=== PATIENT | female | born 1930 | race Asian ===

== ENCOUNTER 2018-07-09 21:04 | Inpatient (IN) | payer MEDICARE, BC ==
[~2018-07-09] VITALS: Ht 142.2 cm; Wt 72.6 kg
[~2018-07-09 21:04] MED LIST: EVISTA60 MG BC; NORVASC5 MG PO
[2018-07-09] MEDS ORDERED: TRAMADOL HCL50 MG ORAL (21:07)
[2018-07-09] MEDS ORDERED: CLONIDINE HCL0.1 M1 PO (21:07)
--- NOTE | 2018-07-09 21:11 | Emergency Room Report ---
History of Present Illness General Chief Complaint: Chest Pain Source: Patient, EMS Present Illness HPI Is an 88-year-old female with a history of hypertension. She presents with chief complaint of chest pain and high blood pressure. She said her blood pressure at home was over 200 systolic. She took couple of her blood pressure medication. She then developed some chest pressure/chest pain tonight. She called 911. EMS gave her 1 spray of nitroglycerin and 2 baby aspirin. Her pain resolved. Blood pressure was running systolic 190 to 230s range. Patient denies any shortness of breath. Denies any diaphoresis. No exertional component. No fever chills but no nausea no vomiting. No diaphoresis. Allergies: Coded Allergies: No Known Allergies (Verified , 01/02/07) Patient History Past Medical History: see triage record, old chart reviewed, HTN Past Surgical History: pacemaker, other - back surgery Pertinent Family History: none Social History: Denies: smoking Last Menstrual Period: n/a Now: No Immunizations: other Reviewed Nursing Documentation: PMH: Agreed; PSxH: Agreed Nursing Documentation-PMH Past Medical History: No History, Except For Hx Cardiac Problems: Yes Hx Hypertension: Yes Hx Cancer: No Hx Gastrointestinal Problems: No Hx Neurological Problems: No Review of Systems Eye: Denies: eye pain, blurred vision ENT: Denies: ear pain, nose congestion, throat swelling Respiratory: Denies: cough, shortness of breath Cardiovascular: Reports: chest pain; Denies: palpitations Gastrointestinal: Denies: abdominal pain, diarrhea, nausea, vomiting Musculoskeletal: Denies: back pain, joint pain Skin: Denies: rash Neurological: Denies: headache, numbness Endocrine: Denies: increased thirst, increased urine Hematologic/Lymphatic: Denies: easy bruising All Other Systems: negative except mentioned in HPI Physical Exam Vital Signs Date Time Temp Pulse Resp B/P (MAP) Pulse Ox O2 Delivery O2 Flow Rate FiO2 07/09/18 20:58 98.2 103 18 221/120 100 Room Air 98.2 vitals with high blood pressure Sp02 EP Interpretation: reviewed, normal General Appearance: well appearing, no apparent distress, alert Head: normocephalic, atraumatic Eyes: bilateral eye PERRL, bilateral eye EOMI ENT: hearing grossly normal, normal pharynx Neck: full range of motion, supple, no meningismus Respiratory: chest non-tender, lungs clear, normal breath sounds Cardiovascular #1: regular rate, rhythm, no murmur Gastrointestinal: normal bowel sounds, non tender, no mass, no organomegaly, no bruit, non-distended Musculoskeletal: back normal, gait/station normal, normal range of motion Psychiatric: mood/affect normal Skin: warm/dry Medical Decision Making Diagnostic Impression: Primary Impression: Chest pain Qualified Codes: R07.9 - Chest pain, unspecified Additional Impression: Accelerated hypertension ER Course Patient with high blood pressure and chest pain. Blood pressure which improved here. She did get nitroglycerin and did take 2 extra doses of her blood pressure medication. No evidence of endorgan damage. No evidence of ACS, PE, dissection. Because of her age and medical history, will admit for further workup. I discussed the case with Dr. Delong who will admit for Dr. Reid. Lab Results Impression labs unremarkable EKG Diagnostic Results Rate: normal Rhythm: NSR, other - paced ST Segments: no acute changes ASA given to the pt in ED: No - given by EMS Rhythm Strip Diag. Results Rhythm Strip Time: 21:24 EP Interpretation: yes Rate: 60 Rhythm: NSR, no PVC's, no ectopy Chest X-Ray Diagnostic Results Chest X-Ray Diagnostic Results : Chest X-Ray Ordered: Yes # of Views/Limited/Complete: 1 View Indication: Chest Pain EP Interpretation: Yes Interpretation: no consolidation, no effusion, no pneumothorax, no acute cardiopulmonary disease, other - pacer Impression: No acute disease Electronically Signed by: Bennie Pack MD Last Vital Signs Date Time Temp Pulse Resp B/P (MAP) Pulse Ox O2 Delivery O2 Flow Rate FiO2 07/09/18 20:58 98.2 103 18 221/120 100 Room Air 98.2 Status: improved Disposition: ADMITTED INPATIENT Condition: Serious Bennie Pack MD Jul 09, 2018 21:11
[2018-07-09 21:44] LABS: APPEARANCE,URINE CLEAR; BILIRUBIN, URINE NEGATIVE (NEGATIVE); COLOR,URINE PALE YELLOW; GLUCOSE, URINE (UA) NEGATIVE (NEGATIVE); KETONES,URINE NEGATIVE (NEGATIVE); LEUKOCYTE ESTERASE ,URINE 1+ (NEGATIVE); NITRITE,URINE NEGATIVE (NEGATIVE); PH,URINE 6.5 (4.5-8.0); PROTEIN,URINE 1+ (NEGATIVE); UROBILINOGEN,URINE NORMAL MG/DL (0.0-1.0)
[2018-07-09 22:06] LABS: BASOPHILS % (AUTO) 2.3 % (0.0-2.0); EOSINOPHILS % (AUTO) 3.7 % (0.0-3.0); HEMOGLOBIN 14.2 G/DL (12.0-16.0); LYMPHOCYTES % (AUTO) 36.8 % (20.0-45.0); MEAN CORPUSCULAR VOLUME 92 FL (80-99); MONOCYTES % (AUTO) 7.9 % (1.0-10.0); NEUTROPHILS % (AUTO) 49.4 % (45.0-75.0); PLATELET COUNT 154 K/UL (150-450); RED BLOOD COUNT 4.55 M/UL (4.20-5.40); RED CELL DISTRIBUTION WIDTH 11.5 % (11.6-14.8); WHITE BLOOD COUNT 5.2 K/UL (4.8-10.8)
[2018-07-09 22:20] LABS: ANION GAP 8 mmol/L (5-15); BLOOD UREA NITROGEN 35 mg/dL (7-18); CALCIUM 9.2 MG/DL (8.5-10.1); CARBON DIOXIDE 27 MMOL/L (21-32); CHLORIDE 104 MMOL/L (98-107); CREATININE 1.4 MG/DL (0.55-1.30); POTASSIUM 3.8 MMOL/L (3.5-5.1); SODIUM 139 MMOL/L (136-145)
[2018-07-09 22:29] VITALS: BP 130/52
[2018-07-09 22:33] LABS: ALANINE AMINOTRANSFERASE 16 U/L (12-78); ALBUMIN 3.4 G/DL (3.4-5.0); ALBUMIN/GLOBULIN RATIO 0.8 (1.0-2.7); ALKALINE PHOSPHATASE 58 U/L (46-116); ASPARTATE AMINO TRANSFERASE 18 U/L (15-37); BILIRUBIN,TOTAL 0.3 MG/DL (0.2-1.0); CREATINE KINASE 115 U/L (26-308)
[2018-07-09 23:10] VITALS: BP 126/55
[2018-07-10] VITALS: BP 144/64
[2018-07-10] MEDS ORDERED: Acetaminophen 500mg (ES) tab ORAL PRN
[2018-07-10 04:00] VITALS: BP 114/61
[2018-07-10] MEDS ORDERED: Heparin 5000 units/ml inj IV SCH (05:00)
[2018-07-10] MEDS ORDERED: Heparin 25,000u/D5W 500ml 500 ML IV SCH ×3 (05:00→22:00)
[2018-07-10 06:46] LABS: EOSINOPHILS % (AUTO) 2.8 % (0.0-3.0); HEMOGLOBIN 12.2 G/DL (12.0-16.0); LYMPHOCYTES % (AUTO) 34.5 % (20.0-45.0); MEAN CORPUSCULAR VOLUME 92 FL (80-99); MONOCYTES % (AUTO) 9.4 % (1.0-10.0); NEUTROPHILS % (AUTO) 51.3 % (45.0-75.0); PLATELET COUNT 139 K/UL (150-450); RED BLOOD COUNT 3.93 M/UL (4.20-5.40); RED CELL DISTRIBUTION WIDTH 11.9 % (11.6-14.8); WHITE BLOOD COUNT 5.3 K/UL (4.8-10.8)
[2018-07-10 07:03] LABS: ANION GAP 7 mmol/L (5-15); BLOOD UREA NITROGEN 36 mg/dL (7-18); CALCIUM 8.8 MG/DL (8.5-10.1); CARBON DIOXIDE 27 MMOL/L (21-32); CHLORIDE 110 MMOL/L (98-107); CREATININE 1.2 MG/DL (0.55-1.30); POTASSIUM 4.3 MMOL/L (3.5-5.1); SODIUM 143 MMOL/L (136-145)
[2018-07-10 08:00] VITALS: BP 130/63
[2018-07-10] MEDS ORDERED: Heparin 5000 units/ml inj SUBQ SCH (09:00)
[2018-07-10] MEDS: Aspirin Baby 81mg NG SCH (09:12)
[2018-07-10] MEDS: cloNIDine 0.2mg Tab ORAL SCH ×2 (09:12→20:37)
--- NOTE | 2018-07-10 10:25 | History and Physical ---
History of Present Illness General Date patient seen: Jul 10, 2018 Time patient seen: 09:00 Reason for Hospitalization: Chest Pain Present Illness HPI 88 yo F PMH of HTN and pacemaker placement presents for SBP of 220 and chest pain. Patient states she occasionally notices her BP is as high as 200 and goes to the emergency room. Patient states she never missed a dose of her medication and takes clonidine 0.2 mg PO BID. In the ER patient was given nitroglycerin and two asa. Patient was experiencing chest pain on arrival however she now states that she has no chest pain. Patient also denies headache, nausea or visual changes. Patient lives at home and states she is able to preform all her ADL. All: none Meds: clonidine 0.2 mg po BID, it c, b12, fish oil PMH: HTN PSH: cesarian x 2, "back surgery", pacemaker FmHx: denies SocHx: patient denies etoh, smoking and drug use Allergies: Coded Allergies: No Known Allergies (Verified , 01/02/07) Medication History Scheduled Amlodipine Besylate (Norvasc), 5 MG PO DAILY, (Reported) Scheduled PRN Tramadol Hcl* (Ultram*), 50 MG ORAL Q6H PRN for For Pain, (Reported) Miscellaneous Medications Clonidine HCl (Clonidine HCl ER), 0.1 MG PO, (Reported) Discontinued Medications Raloxifene Hcl* (Evista*), 60 MG BC, (Reported) Discontinued Reason: Therapy completed Patient History Healthcare decision maker Resuscitation status Full Code Advanced Directive on File No Review of Systems All Other Systems: negative except mentioned in HPI Physical Exam General Appearance: WD/WN, no apparent distress, alert HEENT: normocephalic, atraumatic, anicteric, mucous membranes moist, PERRL Neck: non-tender, normal alignment, supple, normal inspection, abnormal alignment Respiratory/Chest: chest wall non-tender, lungs clear, normal breath sounds, no respiratory distress, no accessory muscle use Cardiovascular/Chest: normal peripheral pulses, normal rate, regular rhythm, regularly irregular, no gallop/murmur Abdomen: non tender, soft, no organomegaly, no mass Extremities: normal range of motion, non-tender, normal inspection, no calf tenderness, normal capillary refill 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, no motor/sensory deficits, oriented x 3 Last 24 Hour Vital Signs Date Time Temp Pulse Resp B/P (MAP) Pulse Ox O2 Delivery O2 Flow Rate FiO2 07/10/18 09:12 130/63 07/10/18 09:00 Room Air 07/10/18 08:00 97.3 60 18 130/63 (85) 98 97.3 07/10/18 04:00 61 07/10/18 04:00 97.9 60 20 114/61 (78) 95 97.9 07/10/18 00:19 Room Air 07/10/18 00:00 60 07/10/18 00:00 97.5 60 18 144/64 (90) 95 97.5 07/09/18 23:32 97.7 60 15 126/55 98 Room Air 07/09/18 23:10 97.5 60 15 126/55 98 Room Air 97.5 60 07/09/18 22:29 103 18 Room Air 07/09/18 22:29 97.5 60 18 130/52 97 Room Air 97.5 07/09/18 20:58 98.2 103 18 221/120 100 Room Air 98.2 Intake and Output 07/09/18 07/10/18 19:00 07:00 Intake Total 153.675 ml Balance 153.675 ml Intake Oral 120 ml IV Total 33.675 ml # Voids 4 Laboratory Tests Test 07/09/18 21:15 07/09/18 21:35 07/10/18 00:45 07/10/18 04:15 Urine Color Pale yellow Urine Appearance Clear Urine pH 6.5 (4.5-8.0) Urine Specific [place] 1.005 (1.005-1.035) Urine Protein 1+ (NEGATIVE) H Urine Glucose (UA) Negative (NEGATIVE) Urine Ketones Negative (NEGATIVE) Urine Blood 2+ (NEGATIVE) H Urine Nitrite Negative (NEGATIVE) Urine Bilirubin Negative (NEGATIVE) Urine Urobilinogen Normal MG/DL (0.0-1.0) Urine Leukocyte Esterase 1+ (NEGATIVE) H Urine RBC 0-2 /HPF (0 - 2) Urine WBC 0-2 /HPF (0 - 2) Urine Squamous Epithelial Cells None /LPF (NONE/OCC) Urine Bacteria None /HPF (NONE) White Blood Count 5.2 K/UL (4.8-10.8) Red Blood Count 4.55 M/UL (4.20-5.40) Hemoglobin 14.2 G/DL (12.0-16.0) Hematocrit 42.0 % (37.0-47.0) Mean Corpuscular Volume 92 FL (80-99) Mean Corpuscular Hemoglobin 31.1 PG (27.0-31.0) H Mean Corpuscular Hemoglobin Concent 33.8 G/DL (32.0-36.0) Red Cell Distribution Width 11.5 % (11.6-14.8) L Platelet Count 154 K/UL (150-450) Mean Platelet Volume 8.4 FL (6.5-10.1) Neutrophils (%) (Auto) 49.4 % (45.0-75.0) Lymphocytes (%) (Auto) 36.8 % (20.0-45.0) Monocytes (%) (Auto) 7.9 % (1.0-10.0) Eosinophils (%) (Auto) 3.7 % (0.0-3.0) H Basophils (%) (Auto) 2.3 % (0.0-2.0) H Sodium Level 139 MMOL/L (136-145) Potassium Level 3.8 MMOL/L (3.5-5.1) Chloride Level 104 MMOL/L (98-107) Carbon Dioxide Level 27 MMOL/L (21-32) Anion Gap 8 mmol/L (5-15) Blood Urea Nitrogen 35 mg/dL (7-18) H Creatinine 1.4 MG/DL (0.55-1.30) H Estimat Glomerular Filtration Rate mL/min (>60) Glucose Level 175 MG/DL (74-106) H Calcium Level 9.2 MG/DL (8.5-10.1) Total Bilirubin 0.3 MG/DL (0.2-1.0) Aspartate Amino Transf (AST/SGOT) 18 U/L (15-37) Alanine Aminotransferase (ALT/SGPT) 16 U/L (12-78) Alkaline Phosphatase 58 U/L (46-116) Total Creatine Kinase 115 U/L (26-308) Creatine Kinase MB 2.0 NG/ML (0.0-3.6) Creatine Kinase MB Relative Index 1.7 Troponin I 0.051 ng/mL (0.000-0.056) 0.525 ng/mL (0.000-0.056) Total Protein 7.6 G/DL (6.4-8.2) Albumin 3.4 G/DL (3.4-5.0) Globulin 4.2 g/dL Albumin/Globulin Ratio 0.8 (1.0-2.7) L Activated Partial Thromboplast Time 28 SEC (23-33) Test 07/10/18 06:05 White Blood Count 5.3 K/UL (4.8-10.8) Red Blood Count 3.93 M/UL (4.20-5.40) L Hemoglobin 12.2 G/DL (12.0-16.0) Hematocrit 36.0 % (37.0-47.0) L Mean Corpuscular Volume 92 FL (80-99) Mean Corpuscular Hemoglobin 30.9 PG (27.0-31.0) Mean Corpuscular Hemoglobin Concent 33.8 G/DL (32.0-36.0) Red Cell Distribution Width 11.9 % (11.6-14.8) Platelet Count 139 K/UL (150-450) L Mean Platelet Volume 7.6 FL (6.5-10.1) Neutrophils (%) (Auto) 51.3 % (45.0-75.0) Lymphocytes (%) (Auto) 34.5 % (20.0-45.0) Monocytes (%) (Auto) 9.4 % (1.0-10.0) Eosinophils (%) (Auto) 2.8 % (0.0-3.0) Basophils (%) (Auto) 2.0 % (0.0-2.0) Sodium Level 143 MMOL/L (136-145) Potassium Level 4.3 MMOL/L (3.5-5.1) Chloride Level 110 MMOL/L (98-107) H Carbon Dioxide Level 27 MMOL/L (21-32) Anion Gap 7 mmol/L (5-15) Blood Urea Nitrogen 36 mg/dL (7-18) H Creatinine 1.2 MG/DL (0.55-1.30) Estimat Glomerular Filtration Rate mL/min (>60) Glucose Level 105 MG/DL (74-106) Calcium Level 8.8 MG/DL (8.5-10.1) Troponin I 0.575 ng/mL (0.000-0.056) Height (Feet): 4 Height (Inches): 8.00 Weight (Pounds): 160 Medications Current Medications Medications (Trade) Dose Ordered Sig/Pedro Route PRN Reason Start Time Stop Time Status Last Admin Dose Admin Acetaminophen (Tylenol) 500 mg Q6HR PRN ORAL Mild Pain/Temp > 100.5 07/10/18 00:00 08/09/18 00:00 Aspirin (ASA) 81 mg DAILY NG 07/10/18 09:00 08/09/18 08:59 07/10/18 09:12 Atorvastatin Calcium (Lipitor) 80 mg BEDTIME ORAL 07/10/18 21:00 08/09/18 20:59 Clonidine HCl (Catapres tab) 0.2 mg Q12HR ORAL 07/10/18 09:00 08/09/18 08:59 07/10/18 09:12 Heparin Sodium/ Dextrose 500 ml @ 17.418 mls/ hr ADJUST PER PROTOCOL IV 07/10/18 05:00 08/09/18 04:59 07/10/18 05:04 Assessment/Plan Problem List: (1) Hypertensive emergency ICD Codes: I16.1 - Hypertensive emergency SNOMED: 137071454267616 (2) NSTEMI (non-ST elevated myocardial infarction) ICD Codes: I21.4 - Non-ST elevation (NSTEMI) myocardial infarction SNOMED: 743029220 (3) JOLANTA (acute kidney injury) ICD Codes: N17.9 - Acute kidney failure, unspecified SNOMED: 15630229 Assessment/Plan HTN Emergency, patient displays kidney dysfxn and elevated troponins with c/p- resolved - decreased BP by 15-20% in the first 24hours - would recommend CCB or BBB for patient as outpatient management NSTEMI - acs protocol (hold BB for BP was dropped too quickly) - serial troponins and EKG's - hep gtt - cards consult JOLANTA- resolved , 2/2 HTN - monitor Savanah Stauffer DO Jul 10, 2018 10:25
--- NOTE | 2018-07-10 11:46 | Diagnostic Imaging Report ---
Indication: Chest pain Comparison: 08/08/2012 A single view chest radiograph was obtained. Findings: There is a pacemaker on the left. Bones are osteopenic. Heart is borderline enlarged. Lungs are essentially clear. Partial visualization of the mid lumbar hardware noted. IMPRESSION: No acute disease
[2018-07-10 12:00] VITALS: BP 142/69
--- NOTE | 2018-07-10 13:32 | Consultation ---
History of Present Illness General Date patient seen: Jul 10, 2018 Time patient seen: 13:28 Chief Complaint: Chest Pain Present Illness HPI 88 year old female presents with HTN urgency, chest pain, elevated troponin. Hx of Pacemaker. BP initially was 220. She is compliant with medications, clonidine. She was given aspirin and nitro in ER. heparin gtt started. Troponin is now downtrending and currently no CP. Blood pressure is now normal. Chest x ray clear. Allergies: Coded Allergies: No Known Allergies (Verified , 01/02/07) Medication History Scheduled Amlodipine Besylate (Norvasc), 5 MG PO DAILY, (Reported) Scheduled PRN Tramadol Hcl* (Ultram*), 50 MG ORAL Q6H PRN for For Pain, (Reported) Miscellaneous Medications Clonidine HCl (Clonidine HCl ER), 0.1 MG PO, (Reported) Discontinued Medications Raloxifene Hcl* (Evista*), 60 MG BC, (Reported) Discontinued Reason: Therapy completed Patient History Healthcare decision maker Resuscitation status Full Code Advanced Directive on File No Review of Systems Constitutional: Reports: no symptoms Eye: Reports: no symptoms ENT: Reports: no symptoms Respiratory: Reports: no symptoms Cardiovascular: Reports: chest pain Gastrointestinal: Reports: no symptoms Genitourinary: Reports: no symptoms Musculoskeletal: Reports: no symptoms Skin: Reports: no symptoms Psychiatric: Reports: no symptoms Neurological: Reports: no symptoms Endocrine: Reports: no symptoms Hematologic/Lymphatic: Reports: no symptoms Physical Exam General Appearance: no apparent distress, alert Lines, tubes and drains: peripheral HEENT: normocephalic, atraumatic Neck: non-tender, normal alignment Respiratory/Chest: chest wall non-tender, lungs clear Abdomen: normal bowel sounds, non tender, soft, no organomegaly, no mass Extremities: normal range of motion, non-tender, normal inspection Skin Exam: normal pigmentation 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, no motor/sensory deficits, alert, oriented x 3 Last 24 Hour Vital Signs Date Time Temp Pulse Resp B/P (MAP) Pulse Ox O2 Delivery O2 Flow Rate FiO2 07/10/18 09:12 130/63 07/10/18 09:00 Room Air 07/10/18 08:00 97.3 60 18 130/63 (85) 98 97.3 07/10/18 04:00 61 07/10/18 04:00 97.9 60 20 114/61 (78) 95 97.9 07/10/18 00:19 Room Air 07/10/18 00:00 60 07/10/18 00:00 97.5 60 18 144/64 (90) 95 97.5 07/09/18 23:32 97.7 60 15 126/55 98 Room Air 07/09/18 23:10 97.5 60 15 126/55 98 Room Air 97.5 60 07/09/18 22:29 103 18 Room Air 07/09/18 22:29 97.5 60 18 130/52 97 Room Air 97.5 07/09/18 20:58 98.2 103 18 221/120 100 Room Air 98.2 Intake and Output 07/09/18 07/10/18 19:00 07:00 Intake Total 153.675 ml Balance 153.675 ml Intake Oral 120 ml IV Total 33.675 ml # Voids 4 Laboratory Tests Test 07/09/18 21:15 07/09/18 21:35 07/10/18 00:45 07/10/18 04:15 Urine Color Pale yellow Urine Appearance Clear Urine pH 6.5 (4.5-8.0) Urine Specific [place] 1.005 (1.005-1.035) Urine Protein 1+ (NEGATIVE) H Urine Glucose (UA) Negative (NEGATIVE) Urine Ketones Negative (NEGATIVE) Urine Blood 2+ (NEGATIVE) H Urine Nitrite Negative (NEGATIVE) Urine Bilirubin Negative (NEGATIVE) Urine Urobilinogen Normal MG/DL (0.0-1.0) Urine Leukocyte Esterase 1+ (NEGATIVE) H Urine RBC 0-2 /HPF (0 - 2) Urine WBC 0-2 /HPF (0 - 2) Urine Squamous Epithelial Cells None /LPF (NONE/OCC) Urine Bacteria None /HPF (NONE) White Blood Count 5.2 K/UL (4.8-10.8) Red Blood Count 4.55 M/UL (4.20-5.40) Hemoglobin 14.2 G/DL (12.0-16.0) Hematocrit 42.0 % (37.0-47.0) Mean Corpuscular Volume 92 FL (80-99) Mean Corpuscular Hemoglobin 31.1 PG (27.0-31.0) H Mean Corpuscular Hemoglobin Concent 33.8 G/DL (32.0-36.0) Red Cell Distribution Width 11.5 % (11.6-14.8) L Platelet Count 154 K/UL (150-450) Mean Platelet Volume 8.4 FL (6.5-10.1) Neutrophils (%) (Auto) 49.4 % (45.0-75.0) Lymphocytes (%) (Auto) 36.8 % (20.0-45.0) Monocytes (%) (Auto) 7.9 % (1.0-10.0) Eosinophils (%) (Auto) 3.7 % (0.0-3.0) H Basophils (%) (Auto) 2.3 % (0.0-2.0) H Sodium Level 139 MMOL/L (136-145) Potassium Level 3.8 MMOL/L (3.5-5.1) Chloride Level 104 MMOL/L (98-107) Carbon Dioxide Level 27 MMOL/L (21-32) Anion Gap 8 mmol/L (5-15) Blood Urea Nitrogen 35 mg/dL (7-18) H Creatinine 1.4 MG/DL (0.55-1.30) H Estimat Glomerular Filtration Rate mL/min (>60) Glucose Level 175 MG/DL (74-106) H Calcium Level 9.2 MG/DL (8.5-10.1) Total Bilirubin 0.3 MG/DL (0.2-1.0) Aspartate Amino Transf (AST/SGOT) 18 U/L (15-37) Alanine Aminotransferase (ALT/SGPT) 16 U/L (12-78) Alkaline Phosphatase 58 U/L (46-116) Total Creatine Kinase 115 U/L (26-308) Creatine Kinase MB 2.0 NG/ML (0.0-3.6) Creatine Kinase MB Relative Index 1.7 Troponin I 0.051 ng/mL (0.000-0.056) 0.525 ng/mL (0.000-0.056) Total Protein 7.6 G/DL (6.4-8.2) Albumin 3.4 G/DL (3.4-5.0) Globulin 4.2 g/dL Albumin/Globulin Ratio 0.8 (1.0-2.7) L Activated Partial Thromboplast Time 28 SEC (23-33) Test 07/10/18 06:05 07/10/18 11:40 White Blood Count 5.3 K/UL (4.8-10.8) Red Blood Count 3.93 M/UL (4.20-5.40) L Hemoglobin 12.2 G/DL (12.0-16.0) Hematocrit 36.0 % (37.0-47.0) L Mean Corpuscular Volume 92 FL (80-99) Mean Corpuscular Hemoglobin 30.9 PG (27.0-31.0) Mean Corpuscular Hemoglobin Concent 33.8 G/DL (32.0-36.0) Red Cell Distribution Width 11.9 % (11.6-14.8) Platelet Count 139 K/UL (150-450) L Mean Platelet Volume 7.6 FL (6.5-10.1) Neutrophils (%) (Auto) 51.3 % (45.0-75.0) Lymphocytes (%) (Auto) 34.5 % (20.0-45.0) Monocytes (%) (Auto) 9.4 % (1.0-10.0) Eosinophils (%) (Auto) 2.8 % (0.0-3.0) Basophils (%) (Auto) 2.0 % (0.0-2.0) Sodium Level 143 MMOL/L (136-145) Potassium Level 4.3 MMOL/L (3.5-5.1) Chloride Level 110 MMOL/L (98-107) H Carbon Dioxide Level 27 MMOL/L (21-32) Anion Gap 7 mmol/L (5-15) Blood Urea Nitrogen 36 mg/dL (7-18) H Creatinine 1.2 MG/DL (0.55-1.30) Estimat Glomerular Filtration Rate mL/min (>60) Glucose Level 105 MG/DL (74-106) Calcium Level 8.8 MG/DL (8.5-10.1) Troponin I 0.575 ng/mL (0.000-0.056) 0.350 ng/mL (0.000-0.056) Activated Partial Thromboplast Time > 150 SEC (23-33) *H Height (Feet): 4 Height (Inches): 8.00 Weight (Pounds): 160 Medications Current Medications Medications (Trade) Dose Ordered Sig/Pedro Route PRN Reason Start Time Stop Time Status Last Admin Dose Admin Acetaminophen (Tylenol) 500 mg Q6HR PRN ORAL Mild Pain/Temp > 100.5 07/10/18 00:00 08/09/18 00:00 Aspirin (ASA) 81 mg DAILY NG 07/10/18 09:00 08/09/18 08:59 07/10/18 09:12 Atorvastatin Calcium (Lipitor) 80 mg BEDTIME ORAL 07/10/18 21:00 08/09/18 20:59 Clonidine HCl (Catapres tab) 0.2 mg Q12HR ORAL 07/10/18 09:00 08/09/18 08:59 07/10/18 09:12 Heparin Sodium/ Dextrose 500 ml @ 11.612 mls/ hr ADJUST PER PROTOCOL IV 07/10/18 13:45 08/09/18 13:44 Rg Chun MD Jul 10, 2018 13:32
[2018-07-10 16:00] VITALS: BP 142/65
[2018-07-10 20:00] VITALS: BP 157/67
[2018-07-10] MEDS ORDERED: Atorvastatin 80mg tab ORAL SCH (21:00)
[2018-07-11] VITALS: BP 127/55
[2018-07-11 04:00] VITALS: BP 125/61
[2018-07-11 04:26] LABS: BASOPHILS % (AUTO) 1.6 % (0.0-2.0); HEMATOCRIT 36.6 % (37.0-47.0); HEMOGLOBIN 12.1 G/DL (12.0-16.0); LYMPHOCYTES % (AUTO) 43.8 % (20.0-45.0); MEAN CORPUSCULAR VOLUME 91 FL (80-99); MONOCYTES % (AUTO) 9.5 % (1.0-10.0); PLATELET COUNT 134 K/UL (150-450); RED BLOOD COUNT 4.02 M/UL (4.20-5.40); RED CELL DISTRIBUTION WIDTH 11.8 % (11.6-14.8); WHITE BLOOD COUNT 5.5 K/UL (4.8-10.8)
[2018-07-11 04:40] LABS: ANION GAP 5 mmol/L (5-15); BLOOD UREA NITROGEN 33 mg/dL (7-18); CALCIUM 8.5 MG/DL (8.5-10.1); CARBON DIOXIDE 27 MMOL/L (21-32); CHLORIDE 111 MMOL/L (98-107); CREATININE 1.5 MG/DL (0.55-1.30); POTASSIUM 3.9 MMOL/L (3.5-5.1); SODIUM 143 MMOL/L (136-145)
[2018-07-11] MEDS ORDERED: Heparin 25,000u/D5W 500ml 500 ML IV SCH (04:45)
[2018-07-11] MEDS ORDERED: Heparin 5000 units/ml inj IV ONE (05:00)
--- NOTE | 2018-07-11 07:37 | Consultation ---
Consult Note Consult Note Hematology/Oncology Consultation CELIA GRYA: Eh Reid DOS: 07/11/18 RFC: Thrombocytopenia and anticoagulation management HPI 88 yo F PMH of HTN and pacemaker placement presents for SBP of 220 and chest pain. Patient states she occasionally notices her BP is as high as 200 and goes to the emergency room. Patient states she never missed a dose of her medication and takes clonidine 0.2 mg PO BID. In the ER patient was given nitroglycerin and two asa. Patient was experiencing chest pain on arrival however she now states that she has no chest pain. Patient also denies headache, nausea or visual changes. Patient lives at home and states she is able to preform all her ADL. Is currently on a heparin gtt and seen by cards All: none Meds: clonidine 0.2 mg po BID, it c, b12, fish oil PMH: HTN PSH: cesarian x 2, "back surgery", pacemaker FmHx: denies SocHx: patient denies etoh, smoking and drug use Allergies: Coded Allergies: No Known Allergies (Verified , 01/02/07) Medication History Scheduled Amlodipine Besylate (Norvasc), 5 MG PO DAILY, (Reported) Scheduled PRN Tramadol Hcl* (Ultram*), 50 MG ORAL Q6H PRN for For Pain, (Reported) Miscellaneous Medications Clonidine HCl (Clonidine HCl ER), 0.1 MG PO, (Reported) Discontinued Medications Raloxifene Hcl* (Evista*), 60 MG BC, (Reported) Discontinued Reason: Therapy completed Patient History Healthcare decision maker Resuscitation status Full Code Advanced Directive on File No Review of Systems All Other Systems: negative except mentioned in HPI Physical Exam Last 24 Hour Vital Signs Date Time Temp Pulse Resp B/P (MAP) Pulse Ox O2 Delivery O2 Flow Rate FiO2 07/11/18 04:00 97.6 60 18 125/61 (82) 96 97.6 07/11/18 04:00 60 07/11/18 00:00 98.5 60 18 127/55 (79) 95 98.5 07/11/18 00:00 60 07/10/18 21:00 Room Air 07/10/18 20:37 157/67 07/10/18 20:00 60 07/10/18 20:00 98.4 61 19 157/67 (97) 96 98.4 07/10/18 16:00 60 07/10/18 16:00 98.6 60 18 142/65 (90) 98 98.6 07/10/18 12:00 60 07/10/18 12:00 98.3 60 18 142/69 (93) 98 98.3 07/10/18 09:12 130/63 07/10/18 09:00 Room Air 07/10/18 08:00 97.3 60 18 130/63 (85) 98 97.3 07/10/18 08:00 62 General Appearance: WD/WN, no apparent distress HEENT: normocephalic, atraumatic Neck: non-tender, normal alignment, supple Respiratory/Chest: chest wall non-tender Cardiovascular/Chest: normal peripheral pulses Abdomen: non tender, soft, no organomegaly, no mass Extremities: normal range of motion, non-tender 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, no motor/sensory deficits Laboratory Tests Test 07/09/18 21:15 07/09/18 21:35 07/10/18 00:45 07/10/18 04:15 Urine Color Pale yellow Urine Appearance Clear Urine pH 6.5 (4.5-8.0) Urine Specific [place] 1.005 (1.005-1.035) Urine Protein 1+ (NEGATIVE) H Urine Glucose (UA) Negative (NEGATIVE) Urine Ketones Negative (NEGATIVE) Urine Blood 2+ (NEGATIVE) H Urine Nitrite Negative (NEGATIVE) Urine Bilirubin Negative (NEGATIVE) Urine Urobilinogen Normal MG/DL (0.0-1.0) Urine Leukocyte Esterase 1+ (NEGATIVE) H Urine RBC 0-2 /HPF (0 - 2) Urine WBC 0-2 /HPF (0 - 2) Urine Squamous Epithelial Cells None /LPF (NONE/OCC) Urine Bacteria None /HPF (NONE) White Blood Count 5.2 K/UL (4.8-10.8) Red Blood Count 4.55 M/UL (4.20-5.40) Hemoglobin 14.2 G/DL (12.0-16.0) Hematocrit 42.0 % (37.0-47.0) Mean Corpuscular Volume 92 FL (80-99) Mean Corpuscular Hemoglobin 31.1 PG (27.0-31.0) H Mean Corpuscular Hemoglobin Concent 33.8 G/DL (32.0-36.0) Red Cell Distribution Width 11.5 % (11.6-14.8) L Platelet Count 154 K/UL (150-450) Mean Platelet Volume 8.4 FL (6.5-10.1) Neutrophils (%) (Auto) 49.4 % (45.0-75.0) Lymphocytes (%) (Auto) 36.8 % (20.0-45.0) Monocytes (%) (Auto) 7.9 % (1.0-10.0) Eosinophils (%) (Auto) 3.7 % (0.0-3.0) H Basophils (%) (Auto) 2.3 % (0.0-2.0) H Sodium Level 139 MMOL/L (136-145) Potassium Level 3.8 MMOL/L (3.5-5.1) Chloride Level 104 MMOL/L (98-107) Carbon Dioxide Level 27 MMOL/L (21-32) Anion Gap 8 mmol/L (5-15) Blood Urea Nitrogen 35 mg/dL (7-18) H Creatinine 1.4 MG/DL (0.55-1.30) H Estimat Glomerular Filtration Rate mL/min (>60) Glucose Level 175 MG/DL (74-106) H Calcium Level 9.2 MG/DL (8.5-10.1) Total Bilirubin 0.3 MG/DL (0.2-1.0) Aspartate Amino Transf (AST/SGOT) 18 U/L (15-37) Alanine Aminotransferase (ALT/SGPT) 16 U/L (12-78) Alkaline Phosphatase 58 U/L (46-116) Total Creatine Kinase 115 U/L (26-308) Creatine Kinase MB 2.0 NG/ML (0.0-3.6) Creatine Kinase MB Relative Index 1.7 Troponin I 0.051 ng/mL (0.000-0.056) 0.525 ng/mL (0.000-0.056) Total Protein 7.6 G/DL (6.4-8.2) Albumin 3.4 G/DL (3.4-5.0) Globulin 4.2 g/dL Albumin/Globulin Ratio 0.8 (1.0-2.7) L Activated Partial Thromboplast Time 28 SEC (23-33) Test 07/10/18 06:05 White Blood Count 5.3 K/UL (4.8-10.8) Red Blood Count 3.93 M/UL (4.20-5.40) L Hemoglobin 12.2 G/DL (12.0-16.0) Hematocrit 36.0 % (37.0-47.0) L Mean Corpuscular Volume 92 FL (80-99) Mean Corpuscular Hemoglobin 30.9 PG (27.0-31.0) Mean Corpuscular Hemoglobin Concent 33.8 G/DL (32.0-36.0) Red Cell Distribution Width 11.9 % (11.6-14.8) Platelet Count 139 K/UL (150-450) L Mean Platelet Volume 7.6 FL (6.5-10.1) Neutrophils (%) (Auto) 51.3 % (45.0-75.0) Lymphocytes (%) (Auto) 34.5 % (20.0-45.0) Monocytes (%) (Auto) 9.4 % (1.0-10.0) Eosinophils (%) (Auto) 2.8 % (0.0-3.0) Basophils (%) (Auto) 2.0 % (0.0-2.0) Sodium Level 143 MMOL/L (136-145) Potassium Level 4.3 MMOL/L (3.5-5.1) Chloride Level 110 MMOL/L (98-107) H Carbon Dioxide Level 27 MMOL/L (21-32) Anion Gap 7 mmol/L (5-15) Blood Urea Nitrogen 36 mg/dL (7-18) H Creatinine 1.2 MG/DL (0.55-1.30) Estimat Glomerular Filtration Rate mL/min (>60) Glucose Level 105 MG/DL (74-106) Calcium Level 8.8 MG/DL (8.5-10.1) Troponin I 0.575 ng/mL (0.000-0.056) Height (Feet): 4 Height (Inches): 8.00 Weight (Pounds): 160 Medications Current Medications Medications (Trade) Dose Ordered Sig/Pedro Route PRN Reason Start Time Stop Time Status Last Admin Dose Admin Acetaminophen (Tylenol) 500 mg Q6HR PRN ORAL Mild Pain/Temp > 100.5 07/10/18 00:00 08/09/18 00:00 Aspirin (ASA) 81 mg DAILY NG 07/10/18 09:00 08/09/18 08:59 07/10/18 09:12 Atorvastatin Calcium (Lipitor) 80 mg BEDTIME ORAL 07/10/18 21:00 08/09/18 20:59 Clonidine HCl (Catapres tab) 0.2 mg Q12HR ORAL 07/10/18 09:00 08/09/18 08:59 07/10/18 09:12 Heparin Sodium/ Dextrose 500 ml @ 17.418 mls/ hr ADJUST PER PROTOCOL IV 07/10/18 05:00 08/09/18 04:59 07/10/18 05:04 Assessment/Plan # Thrombocytopenia -- plt 100-150k in the setting of being on heparin gtt. At this time, is unlikely HIT as has not had a significant drop in platelet count yet. --> does not yet require a HIT test unless plt count >75k --> continue heparin gtt at this time --> hep and hiv have been ordered --> other meds reviewed # Coagulopathy with elev pt/ptt/inr secondary to heparin gtt --> continue gtt unless severe bleeding # NSTEMI (non-ST elevated myocardial infarction) - acs protocol (hold BB for BP was dropped too quickly) - serial troponins and EKG's - hep gtt - cards consult # JOLANTA- resolved , 2/2 HTN Greatly appreciate consultation! Kiel Garcia MD Jul 11, 2018 07:37
[2018-07-11 08:00] VITALS: BP 131/60
[2018-07-11] MEDS: Aspirin Baby 81mg NG SCH (08:44)
[2018-07-11 08:47] VITALS: BP 131/61
[2018-07-11] MEDS ORDERED: Hyzaar 12.5mg/50mg tab ORAL SCH (09:00)
[2018-07-11] MEDS ORDERED: ATORVASTATIN CA40 MG ORAL (09:57)
[2018-07-11] MEDS ORDERED: HYZAAR 50-12.51 EACH ORAL (09:57)
[2018-07-11] MEDS ORDERED: ASPIRIN81 MG NG (09:57)
--- NOTE | 2018-07-11 10:00 | Discharge Instructions ---
Discharge Instructions Discharge Instructions Follow up with: Cardiology, Dr. Chun for cardiac stress test Special Instructions You have been started on ASA and Lipitor ( a medication for cholesterol). Your clonidine has been stopped and we have started you on a new combination medication for blood pressure called Hyzaar, as recommended by cardiology. Please follow up with your Dr. Nolasco within a week. And also you will follow up with Dr. Chun, Cardiology for a cardiac stress test. We are in the process of setting that up, please call his office at [phone] with any questions. Return to the ER if you experience any headache, dizziness, shortness of breath or new chest pain. For Congestive Heart Failure Reminder Report to your physician any weight gain of 5 pounds or more in one week. Savanah Stauffer DO Jul 11, 2018 10:00
--- NOTE | 2018-07-11 10:10 | Discharge Summary ---
Discharge Summary Hospital Course Date of Admission Jul 09, 2018 at 22:13 Date of Discharge 07/11/18 Admitting Diagnosis accelerated HTN, cp Reason for Hospitalization: HTN urgency HPI Shira Richards is a 88 year old female who was admitted on Jul 09, 2018 at 22:13 for Accelerated Hypertension,Chest Pain Consultations Cardiology: Dr. Chun Hematology: Dr. Garcia Procedures TTE Hospital Course Patient is a 88 yo pleasant female with PMH of HTN with a pacemaker admitted for HTN urgency with elevated troponins and JOLANTA. Patient states she takes clonidine 0.2 mg PO BID and does not miss a dose of her medication. Patient states she frequently has elevated blood pressures >200 at which time she goes to the ED. Per EMS notes, patients SBP was 220 on admission with troponins of 0.5. Patients EKG shows a paced rhythm with qwaves. Patient was placed on hep gtt and acs protocol. Her troponins downtrended to 0.35 during hospital stay, and her chest pain resolved. Cardiology was consulted who reviewed echo (EF 60- 65%, please see full report in other reports). Cardiology recommended outpatient stress test and change of home BP med to Hyzaar for better control. Patient doing well on day of discharge with normal vitals. JOLANTA has resolved. PCP Dr. Nolasco Follow up test: outpatient cardiac stress test Imaging: Procedure: XRAY Chest 1v Indication: Chest pain Comparison: 08/08/2012 A single view chest radiograph was obtained. Findings: There is a pacemaker on the left. Bones are osteopenic. Heart is borderline enlarged. Lungs are essentially clear. Partial visualization of the mid lumbar hardware noted. IMPRESSION: No acute disease ECHO EF 60-65% Discharge Meds: Lipitor 40 mg PO QHS Hyzaar (HCTZ/Losartan combo) 50 mg PO Daily Asa 81 mg po daily Dispo: home Condition: good Discharge Discharge Disposition Patient was discharged to Discharge Diagnoses: (1) Accelerated hypertension (2) NSTEMI (non-ST elevated myocardial infarction) (3) JOLANTA (acute kidney injury) Discharge Instructions Discharge Instructions Follow up with: Cardiology, Dr. Chun for cardiac stress test Savanah Stauffer DO Jul 11, 2018 10:10
--- NOTE | 2018-07-11 10:14 | General Progress Note ---
Assessment/Plan Problem List: (1) Hypertensive urgency ICD Codes: I16.0 - Hypertensive urgency SNOMED: 513893844 (2) NSTEMI (non-ST elevated myocardial infarction) ICD Codes: I21.4 - Non-ST elevation (NSTEMI) myocardial infarction SNOMED: 145520749 (3) JOLANTA (acute kidney injury) ICD Codes: N17.9 - Acute kidney failure, unspecified SNOMED: 24467510 Assessment/Plan HTN Urgency - resolved - d.c clonidine (home med) - start hyzaar per card rec NSTEMI - complete hep gtt - appreciate cardiology reqs - outpatient stress test JOLANTA -resolved Pacemaker Dispo - home today patient has PCP she follows up with, Dr Nolasco Subjective Date patient seen: Jul 11, 2018 Time patient seen: 09:00 ROS Limited/Unobtainable: Yes Allergies: Coded Allergies: No Known Allergies (Verified , 01/02/07) All Systems: reviewed and negative except above Subjective patient states she is doing well, with no chest pain, and would like to go home today Objective Last 24 Hour Vital Signs Date Time Temp Pulse Resp B/P (MAP) Pulse Ox O2 Delivery O2 Flow Rate FiO2 07/11/18 09:00 Room Air 07/11/18 08:47 60 131/61 07/11/18 08:46 131/61 07/11/18 08:00 97.3 62 18 131/60 (83) 96 97.3 07/11/18 04:00 97.6 60 18 125/61 (82) 96 97.6 07/11/18 04:00 60 07/11/18 00:00 98.5 60 18 127/55 (79) 95 98.5 07/11/18 00:00 60 07/10/18 21:00 Room Air 07/10/18 20:37 157/67 07/10/18 20:00 60 07/10/18 20:00 98.4 61 19 157/67 (97) 96 98.4 07/10/18 16:00 60 07/10/18 16:00 98.6 60 18 142/65 (90) 98 98.6 07/10/18 12:00 60 07/10/18 12:00 98.3 60 18 142/69 (93) 98 98.3 Intake and Output 07/10/18 07/11/18 19:00 07:00 Intake Total 377.41 ml 200.489 ml Output Total 350 ml Balance 27.41 ml 200.489 ml Intake Oral 360 ml 120 ml IV Total 17.41 ml 80.489 ml Output Urine Total 350 ml # Voids 2 4 Laboratory Tests 07/10/18 11:40: Activated Partial Thromboplast Time > 150*H, Troponin I 0.350H 07/10/18 19:55: Urine Opiates Screen Negative, Urine Barbiturates Screen Negative, Phencyclidine (PCP) Screen Negative, Urine Amphetamines Screen Negative, Urine Benzodiazepines Screen Negative, Urine Cocaine Screen Negative, Urine Marijuana (THC) Screen Negative 07/10/18 20:14: Activated Partial Thromboplast Time 131H 07/11/18 02:50: Activated Partial Thromboplast Time 61H, White Blood Count 5.5, Red Blood Count 4.02L, Hemoglobin 12.1, Hematocrit 36.6L, Mean Corpuscular Volume 91, Mean Corpuscular Hemoglobin 30.1, Mean Corpuscular Hemoglobin Concent 33.1, Red Cell Distribution Width 11.8, Platelet Count 134L, Mean Platelet Volume 8.6, Neutrophils (%) (Auto) 42.0L, Lymphocytes (%) (Auto) 43.8, Monocytes (%) (Auto) 9.5, Eosinophils (%) (Auto) 3.0, Basophils (%) (Auto) 1.6, Sodium Level 143, Potassium Level 3.9, Chloride Level 111H, Carbon Dioxide Level 27, Anion Gap 5, Blood Urea Nitrogen 33H, Creatinine 1.5H, Estimat Glomerular Filtration Rate , Glucose Level 104, Calcium Level 8.5, Hepatitis A IgM Antibody [Pending], Hepatitis B Surface Antigen [Pending], Hepatitis B Core IgM Antibody [Pending], Hepatitis C Antibody [Pending], HIV (1&2) Antibody Rapid Negative Height (Feet): 4 Height (Inches): 8.00 Weight (Pounds): 160 General Appearance: WD/WN, no apparent distress, alert EENT: PERRL/EOMI, normal ENT inspection, TMs normal Neck: non-tender, normal alignment, supple, normal inspection Cardiovascular: normal peripheral pulses, normal rate, regular rhythm, regularly irregular, no gallop/murmur, no JVD Respiratory/Chest: chest wall non-tender, lungs clear, normal breath sounds, no respiratory distress, no accessory muscle use Abdomen: normal bowel sounds, non tender, soft, no organomegaly Extremities: normal range of motion, non-tender, no calf tenderness 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
--- NOTE | 2018-07-11 10:58 | Cardiology Progress Note ---
Assessment/Plan Status: stable Assessment/Plan (1) Hypertensive emergency (2) NSTEMI (non-ST elevated myocardial infarction) (3) JOLANTA (acute kidney injury) Heparin gtt for 48 hours conservative treatment of NSTEMI NO indication for cath at this time, troponin down trending, no further CP Nitro prn Echocardiogram -> LVEF 65% Continue Losartan/HCTZ for better BP control Outpatient stress test IV fluids Ambulate ok to discharge home Subjective Cardiovascular: Reports: no symptoms Respiratory: Reports: no symptoms Gastrointestinal/Abdominal: Reports: no symptoms Genitourinary: Reports: no symptoms Subjective No acute events, no complaints, BP stable, plan for d/c today Objective Last 24 Hour Vital Signs Date Time Temp Pulse Resp B/P (MAP) Pulse Ox O2 Delivery O2 Flow Rate FiO2 07/11/18 09:00 Room Air 07/11/18 08:47 60 131/61 07/11/18 08:46 131/61 07/11/18 08:00 97.3 62 18 131/60 (83) 96 97.3 07/11/18 04:00 97.6 60 18 125/61 (82) 96 97.6 07/11/18 04:00 60 07/11/18 00:00 98.5 60 18 127/55 (79) 95 98.5 07/11/18 00:00 60 07/10/18 21:00 Room Air 07/10/18 20:37 157/67 07/10/18 20:00 60 07/10/18 20:00 98.4 61 19 157/67 (97) 96 98.4 07/10/18 16:00 60 07/10/18 16:00 98.6 60 18 142/65 (90) 98 98.6 07/10/18 12:00 60 07/10/18 12:00 98.3 60 18 142/69 (93) 98 98.3 General Appearance: no apparent distress, alert EENT: PERRL/EOMI Neck: non-tender, normal alignment, supple, normal inspection, no JVD Rhythm: NSR Cardiovascular: normal peripheral pulses, normal rate, regular rhythm Respiratory/Chest: chest wall non-tender, lungs clear, normal breath sounds Abdomen: normal bowel sounds, non tender, soft, no organomegaly, no mass Extremities: normal range of motion, non-tender, normal inspection 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 normal, no motor/sensory deficits, alert, oriented x 3 Intake and Output 07/10/18 07/11/18 19:00 07:00 Intake Total 377.41 ml 200.489 ml Output Total 350 ml Balance 27.41 ml 200.489 ml Intake Oral 360 ml 120 ml IV Total 17.41 ml 80.489 ml Output Urine Total 350 ml # Voids 2 4 Laboratory Tests Test 07/10/18 11:40 07/10/18 19:55 07/10/18 20:14 07/11/18 02:50 Activated Partial Thromboplast Time > 150 SEC (23-33) *H 131 SEC (23-33) H 61 SEC (23-33) H Troponin I 0.350 ng/mL (0.000-0.056) Urine Opiates Screen Negative (NEGATIVE) Urine Barbiturates Screen Negative (NEGATIVE) Phencyclidine (PCP) Screen Negative (NEGATIVE) Urine Amphetamines Screen Negative (NEGATIVE) Urine Benzodiazepines Screen Negative (NEGATIVE) Urine Cocaine Screen Negative (NEGATIVE) Urine Marijuana (THC) Screen Negative (NEGATIVE) White Blood Count 5.5 K/UL (4.8-10.8) Red Blood Count 4.02 M/UL (4.20-5.40) L Hemoglobin 12.1 G/DL (12.0-16.0) Hematocrit 36.6 % (37.0-47.0) L Mean Corpuscular Volume 91 FL (80-99) Mean Corpuscular Hemoglobin 30.1 PG (27.0-31.0) Mean Corpuscular Hemoglobin Concent 33.1 G/DL (32.0-36.0) Red Cell Distribution Width 11.8 % (11.6-14.8) Platelet Count 134 K/UL (150-450) L Mean Platelet Volume 8.6 FL (6.5-10.1) Neutrophils (%) (Auto) 42.0 % (45.0-75.0) L Lymphocytes (%) (Auto) 43.8 % (20.0-45.0) Monocytes (%) (Auto) 9.5 % (1.0-10.0) Eosinophils (%) (Auto) 3.0 % (0.0-3.0) Basophils (%) (Auto) 1.6 % (0.0-2.0) Sodium Level 143 MMOL/L (136-145) Potassium Level 3.9 MMOL/L (3.5-5.1) Chloride Level 111 MMOL/L (98-107) H Carbon Dioxide Level 27 MMOL/L (21-32) Anion Gap 5 mmol/L (5-15) Blood Urea Nitrogen 33 mg/dL (7-18) H Creatinine 1.5 MG/DL (0.55-1.30) H Estimat Glomerular Filtration Rate mL/min (>60) Glucose Level 104 MG/DL (74-106) Calcium Level 8.5 MG/DL (8.5-10.1) Hepatitis A IgM Antibody Pending Hepatitis B Surface Antigen Pending Hepatitis B Core IgM Antibody Pending Hepatitis C Antibody Pending HIV (1&2) Antibody Rapid Negative (NEGATIVE) Rg Chun MD Jul 11, 2018 10:58
--- NOTE | 2018-07-11 14:22 | Consultation ---
History of Present Illness General Date patient seen: Jul 10, 2018 Chief Complaint: Chest Pain Present Illness HPI 88 yo F PMH of HTN and pacemaker placement presents for SBP of 220 and chest pain. the pt has anxiety fatigue and diff sleeping at times. the pt has no manic /psychotic sxs. the pt is worried about her healthe issues the pt is having memory issues and is reluctant to take antidepressants. Allergies: Coded Allergies: No Known Allergies (Verified , 01/02/07) Medication History Scheduled Aspirin* (Aspirin*), 81 MG NG DAILY Atorvastatin Calcium* (Atorvastatin Calcium*), 40 MG ORAL BEDTIME Losartan/Hydrochlorothiazide 50-12.5 Tablet* (Hyzaar 50-12.5 Tablet*), 1 TAB ORAL DAILY Discontinued Medications Amlodipine Besylate (Norvasc), 5 MG PO DAILY, (Reported) Discontinued Reason: Medication dose changed Clonidine HCl (Clonidine HCl ER), 0.1 MG PO, (Reported) Discontinued Reason: MD discontinued med Raloxifene Hcl* (Evista*), 60 MG BC, (Reported) Discontinued Reason: Therapy completed Tramadol Hcl* (Ultram*), 50 MG ORAL Q6H PRN for For Pain, (Reported) Discontinued Reason: MD discontinued med Patient History Limited by: medical condition History Provided By: Patient, Medical Record Healthcare decision maker Resuscitation status Full Code Advanced Directive on File No Past Medical/Surgical History Past Medical/Surgical History: (1) Chest pain (2) NSTEMI (non-ST elevated myocardial infarction) (3) JOLANTA (acute kidney injury) (4) Hypertensive emergency (5) Accelerated hypertension (6) Hypertensive urgency Review of Systems Psychiatric: Reports: prior hx, anxiety, depressed feelings Physical Exam General Appearance: no apparent distress, alert Neurologic: oriented x 3, responsive, depressed affect Last 24 Hour Vital Signs Date Time Temp Pulse Resp B/P (MAP) Pulse Ox O2 Delivery O2 Flow Rate FiO2 07/11/18 12:00 60 07/11/18 09:00 Room Air 07/11/18 08:47 60 131/61 07/11/18 08:46 131/61 07/11/18 08:00 97.3 62 18 131/60 (83) 96 97.3 07/11/18 08:00 68 07/11/18 04:00 97.6 60 18 125/61 (82) 96 97.6 07/11/18 04:00 60 07/11/18 00:00 98.5 60 18 127/55 (79) 95 98.5 07/11/18 00:00 60 07/10/18 21:00 Room Air 07/10/18 20:37 157/67 07/10/18 20:00 60 07/10/18 20:00 98.4 61 19 157/67 (97) 96 98.4 07/10/18 16:00 60 07/10/18 16:00 98.6 60 18 142/65 (90) 98 98.6 Intake and Output 07/10/18 07/11/18 18:59 06:59 Intake Total 394.828 ml 190.328 ml Output Total 350 ml Balance 44.828 ml 190.328 ml Intake Oral 360 ml 120 ml IV Total 34.828 ml 70.328 ml Output Urine Total 350 ml # Voids 2 4 Laboratory Tests Test 07/10/18 19:55 07/10/18 20:14 07/11/18 02:50 Urine Opiates Screen Negative (NEGATIVE) Urine Barbiturates Screen Negative (NEGATIVE) Phencyclidine (PCP) Screen Negative (NEGATIVE) Urine Amphetamines Screen Negative (NEGATIVE) Urine Benzodiazepines Screen Negative (NEGATIVE) Urine Cocaine Screen Negative (NEGATIVE) Urine Marijuana (THC) Screen Negative (NEGATIVE) Activated Partial Thromboplast Time 131 SEC (23-33) H 61 SEC (23-33) H White Blood Count 5.5 K/UL (4.8-10.8) Red Blood Count 4.02 M/UL (4.20-5.40) L Hemoglobin 12.1 G/DL (12.0-16.0) Hematocrit 36.6 % (37.0-47.0) L Mean Corpuscular Volume 91 FL (80-99) Mean Corpuscular Hemoglobin 30.1 PG (27.0-31.0) Mean Corpuscular Hemoglobin Concent 33.1 G/DL (32.0-36.0) Red Cell Distribution Width 11.8 % (11.6-14.8) Platelet Count 134 K/UL (150-450) L Mean Platelet Volume 8.6 FL (6.5-10.1) Neutrophils (%) (Auto) 42.0 % (45.0-75.0) L Lymphocytes (%) (Auto) 43.8 % (20.0-45.0) Monocytes (%) (Auto) 9.5 % (1.0-10.0) Eosinophils (%) (Auto) 3.0 % (0.0-3.0) Basophils (%) (Auto) 1.6 % (0.0-2.0) Sodium Level 143 MMOL/L (136-145) Potassium Level 3.9 MMOL/L (3.5-5.1) Chloride Level 111 MMOL/L (98-107) H Carbon Dioxide Level 27 MMOL/L (21-32) Anion Gap 5 mmol/L (5-15) Blood Urea Nitrogen 33 mg/dL (7-18) H Creatinine 1.5 MG/DL (0.55-1.30) H Estimat Glomerular Filtration Rate mL/min (>60) Glucose Level 104 MG/DL (74-106) Calcium Level 8.5 MG/DL (8.5-10.1) Hepatitis A IgM Antibody Pending Hepatitis B Surface Antigen Pending Hepatitis B Core IgM Antibody Pending Hepatitis C Antibody Pending HIV (1&2) Antibody Rapid Negative (NEGATIVE) Height (Feet): 4 Height (Inches): 8.00 Weight (Pounds): 160 Medications Current Medications Medications (Trade) Dose Ordered Sig/Pedro Route PRN Reason Start Time Stop Time Status Last Admin Dose Admin Acetaminophen (Tylenol) 500 mg Q6HR PRN ORAL Mild Pain/Temp > 100.5 07/10/18 00:00 08/09/18 00:00 07/10/18 20:51 Aspirin (ASA) 81 mg DAILY NG 07/10/18 09:00 08/09/18 08:59 07/11/18 08:44 Atorvastatin Calcium (Lipitor) 80 mg BEDTIME ORAL 07/10/18 21:00 08/09/18 20:59 07/10/18 20:36 HCTZ/Losartan Potassium (Hyzaar 50-12.5) 1 tab DAILY ORAL 07/11/18 09:00 08/10/18 08:59 07/11/18 08:46 Temazepam (Restoril) 7.5 mg HSPRN PRN ORAL Insomnia 07/10/18 23:15 07/17/18 23:14 07/11/18 00:34 Assessment/Plan Status: stable Assessment/Plan chest pain anxiety d/o cognitive impairment ativan prn provided ro/Melanie Lechgua MD Jul 11, 2018 14:22
--- NOTE | 2018-07-13 12:17 | Cardiology Report ---
APPROVED REPORT EKG Measurement Heart [id number] Atrial pacing Cannot rule out Anterior infarct, age undetermined Abnormal ECG
--- NOTE | 2018-07-14 11:15 | Cardiology Report ---
APPROVED REPORT EXAM: Two-dimensional and M-mode echocardiogram with Doppler and color Doppler. INDICATION Chest Pain M-Mode DIMENSIONS IVSd1.1 (0.7-1.1cm)Left Atrium (MM)2.8 (1.6-4.0cm) LVDd3.4 (3.5-5.6cm)Aortic Root2.4 (2.0-3.7cm) PWd1.0 (0.7-1.1cm)Aortic Cusp Exc.1.5 (1.5-2.0cm) IVSs1.7 cm LVDs2.0 (2.5-4.0cm) PWs1.4 cm Normal left ventricular chamber size, systolic function and wall motion . Left ventricular ejection fraction estimated to be 60-65 %. Moderate left ventricular hypertrophy by 2-D. No evidence of pericardial effusion. All other cardiac chamber sizes are within normal limits. Focal aortic valve sclerosis with adequate cusp excursion. Thickened mitral valve leaflets with normal excursion. Mitral annulus and aortic root calcification. Pulmonic valve not well visualized. Normal tricuspid valve structure. IVC at normal size with slightly physiological collapse . 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 A color flow and spectral Doppler study was performed and revealed: Mild to moderate aortic insuffiecy. Moderate mitral regurgitation. Mitral diastolic velocities suggest reduced left ventricular relaxation c/w mild LV diastolic dysfunction (Grade I ). Mild tricuspid regurgitation. Tricuspid systolic velocities suggests peak right ventricular systolic pressure of 30 mmHg.
== END 2018-07-11 14:35 | disposition home or self-care (01) | DRG 281 ==
LOC: EDBD 21:04 → EMR 21:14 → 2E 22:13 → EDBEDREQ 22:46
DX: I21.4 Non-ST elevation (NSTEMI) myocardial infarction (principal); N17.9 Acute kidney failure, unspecified; D68.9 Coagulation defect, unspecified; I16.0 Hypertensive urgency; Z95.0 Presence of cardiac pacemaker; D69.6 Thrombocytopenia, unspecified
CPT/HCPCS: 36415; 71045; 80048; 80053; 80307; 81003; 82550; 82553; 84484; 85025; 85730; 86703; 86705; 86709; 86803; 87340; 93005; 93306; 99285